=== PATIENT | female | born 1960 | race Caucasian/White ===

== ENCOUNTER 2018-03-21 14:25 | Inpatient (IN) | payer OTHER ==
[~2018-03-21] VITALS: Ht 165.1 cm; Wt 87.1 kg
[2018-03-21] MEDS ORDERED: ONDANSETRON 4 MG/2 ML (SDV) Z0FRAN IVP ONE (15:45)
[2018-03-21] MEDS ORDERED: NS IV 1000 ML 1,000 ML IV SCH (15:45)
[2018-03-21] MEDS ORDERED: fentaNYL INJECTION 100 MCG/2 ML AMP IVP ONE ×2 (15:45→18:45)
[2018-03-21 15:53] LABS: BASOPHILS % (AUTO) 0 % (0-10); EOSINOPHILS % (AUTO) 0 % (0-10); HEMATOCRIT 42 % (35-52); HEMOGLOBIN 14.2 G/DL (11.5-16.0); LYMPHOCYTES % (AUTO) 6 % (12-44); MEAN CORPUSCULAR HEMOGLOBIN 30 PG (25-34); MEAN CORPUSCULAR HGB CONC 34 G/DL (32-36); MEAN CORPUSCULAR VOLUME 89 FL (80-99); MEAN PLATELET VOLUME 9.8 FL (7.4-10.4); MONOCYTES # (AUTO) 1.3 X 10^3 (0.0-1.0); MONOCYTES % (AUTO) 8 % (0-12); NEUTROPHILS % (AUTO) 85 % (42-75); PLATELET COUNT 323 10^3/uL (130-400); RED BLOOD COUNT 4.72 10^6/uL (4.35-5.85); RED CELL DISTRIBUTION WIDTH 13.3 % (10.0-14.5); WHITE BLOOD COUNT 15.3 10^3/uL (4.3-11.0)
[2018-03-21 16:06] LABS: ALANINE AMINOTRANSFERASE 26 U/L (0-55); ALBUMIN 4.6 GM/DL (3.2-4.5); ALKALINE PHOSPHATASE 126 U/L (40-136); AMYLASE 19 U/L (25-125); BILIRUBIN,TOTAL 0.8 MG/DL (0.1-1.0); BUN/CREATININE RATIO 14; CALCIUM 10.3 MG/DL (8.5-10.1); CARBON DIOXIDE 27 MMOL/L (21-32); CHLORIDE 102 MMOL/L (98-107); CREATININE SERUM 0.83 MG/DL (0.60-1.30); GFR ESTIMATED > 60; GLUCOSE 131 MG/DL (70-105); LIPASE 19 U/L (8-78); POTASSIUM 3.1 MMOL/L (3.6-5.0); SODIUM 138 MMOL/L (135-145); TOTAL PROTEIN 8.4 GM/DL (6.4-8.2)
[2018-03-21] MEDS ORDERED: NS 250 ML (IVPB) BAG IV ONE (16:15)
[2018-03-21] MEDS ORDERED: IOHEXOL 350 MG/ML 100 ML (OMNIPAQUE 350) VIAL IV ONE (16:15)
[2018-03-21 16:23] LABS: BAND NEUTROPHILS 8 %; BASOPHILS % (MANUAL) 0 %; EOSINOPHILS % (MANUAL) 0 %; LYMPHOCYTES % (MANUAL) 7 %; METAMYELOCYTES % 1 %; MONOCYTES % (MANUAL) 9 %; NEUTROPHILS % (MANUAL) 75 %; RBC MORPH NORMAL
--- NOTE | 2018-03-21 17:11 | ED Abdominal Pain ---
General Chief Complaint: Abdominal/GI Problems Stated Complaint: N/V;UPPER ABD PAIN Nursing Triage Note: pt presents to ed with complaints of upper medial abdominal pain intermittently since but has been constant all day. pt also reports n/v. Sepsis Screen: No Definite Risk Source of Information: Patient Exam Limitations: No Limitations History of Present Illness Date Seen by Provider: Mar 21, 2018 Time Seen by Provider: 15:40 Initial Comments Patient is a 57-year-old female who presents to the emergency room with complaint of nausea, vomiting, upper abdominal/epigastric pain for the past 5 days. She denies any fevers, she reports she has not been able to keep anything down due to severe nausea and vomiting. Timing/Duration: 4-5 Days Severity/Quality: Cramping Location: Epigastric, Periumbilical Radiation: No Radiation Associated Symptoms: Nausea/Vomiting Allergies and Home Medications Allergies Coded Allergies: avocado (Verified Allergy, Unknown, 03/21/18) hepatitis B virus vaccine (Verified Allergy, Unknown, 03/21/18) Home Medications No Active Prescriptions or Reported Meds Patient Home Medication List Home Medication List Reviewed: Yes Review of Systems Review of Systems Constitutional: see HPI; No chills, No fever Gastrointestinal: See HPI, Abdominal Pain (right upper quadrant abdominal pain) , Nausea, Vomiting All Other Systems Reviewed Negative Unless Noted: Yes Past Iqrmfvo-Mtefso-Brjfpd Hx Past Med/Social Hx: Reviewed Nursing Past Med/Soc Hx Patient Social History Alcohol Use: Denies Use Recreational Drug Use: No Smoking Status: Never a Smoker Recent Foreign Travel: No Contact w/Someone Who Travel: No Recent Infectious Disease Expo: No Physical Abuse: No Sexual Abuse: No Mistreated: No Fear: No Past Medical History Surgeries: Yes Tonsillectomy, Tubal Ligation Respiratory: No Cardiac: No Neurological: No Genitourinary: No Gastrointestinal: No Musculoskeletal: No Endocrine: No HEENT: No Cancer: No Psychosocial: No Integumentary: No Blood Disorders: Yes (anemia) Family Medical History Reviewed Nursing Family Hx Physical Exam Vital Signs Vital Signs - First Documented 03/21/18 15:40 Temp 99.6 Pulse 86 Resp 12 B/P (MAP) 145/89 (107) Pulse Ox 98 Capillary Refill : Less Than 3 Seconds Height/Weight/BMI Height: 5'5.00" Weight: 190lbs. oz. 86.158616cz; BMI Method:Stated General Appearance: WD/WN, no apparent distress Respiratory: chest non-tender, lungs clear, normal breath sounds, no respiratory distress, no accessory muscle use Cardiovascular: normal peripheral pulses, regular rate, rhythm, no edema, no gallop, no JVD, no murmur Gastrointestinal: normal bowel sounds, soft, no organomegaly, no pulsatile mass , guarding (guarding to the right upper quadrant), tenderness (right upper quadrant and right lower quadrant abdominal tenderness) Neurologic/Psychiatric: alert, normal mood/affect, oriented x 3 Skin: normal color, warm/dry Progress/Results/Core Measures Results/Orders Lab Results Laboratory Tests Test 03/21/18 15:36 03/21/18 17:40 Range/Units White Blood Count 15.3 H 4.3-11.0 10^3/uL Red Blood Count 4.72 4.35-5.85 10^6/uL Hemoglobin 14.2 11.5-16.0 G/DL Hematocrit 42 35-52 % Mean Corpuscular Volume 89 80-99 FL Mean Corpuscular Hemoglobin 30 25-34 PG Mean Corpuscular Hemoglobin Concent 34 32-36 G/DL Red Cell Distribution Width 13.3 10.0-14.5 % Platelet Count 323 130-400 10^3/uL Mean Platelet Volume 9.8 7.4-10.4 FL Neutrophils (%) (Auto) 85 H 42-75 % Lymphocytes (%) (Auto) 6 L 12-44 % Monocytes (%) (Auto) 8 0-12 % Eosinophils (%) (Auto) 0 0-10 % Basophils (%) (Auto) 0 0-10 % Neutrophils # (Auto) 13.0 H 1.8-7.8 X 10^3 Lymphocytes # (Auto) 1.0 1.0-4.0 X 10^3 Monocytes # (Auto) 1.3 H 0.0-1.0 X 10^3 Eosinophils # (Auto) 0.0 0.0-0.3 10^3/uL Basophils # (Auto) 0.0 0.0-0.1 10^3/uL Neutrophils % (Manual) 75 % Lymphocytes % (Manual) 7 % Monocytes % (Manual) 9 % Eosinophils % (Manual) 0 % Basophils % (Manual) 0 % Metamyelocytes % 1 % Band Neutrophils 8 % Blood Morphology Comment NORMAL Sodium Level 138 135-145 MMOL/L Potassium Level 3.1 L 3.6-5.0 MMOL/L Chloride Level 102 98-107 MMOL/L Carbon Dioxide Level 27 21-32 MMOL/L Anion Gap 9 5-14 MMOL/L Blood Urea Nitrogen 12 7-18 MG/DL Creatinine 0.83 0.60-1.30 MG/DL Estimat Glomerular Filtration Rate > 60 BUN/Creatinine Ratio 14 Glucose Level 131 H 70-105 MG/DL Calcium Level 10.3 H 8.5-10.1 MG/DL Corrected Calcium 8.5-10.1 MG/DL Total Bilirubin 0.8 0.1-1.0 MG/DL Aspartate Amino Transf (AST/SGOT) 21 5-34 U/L Alanine Aminotransferase (ALT/SGPT) 26 0-55 U/L Alkaline Phosphatase 126 40-136 U/L Total Protein 8.4 H 6.4-8.2 GM/DL Albumin 4.6 H 3.2-4.5 GM/DL Amylase Level 19 L 25-125 U/L Lipase 19 8-78 U/L Urine Color YELLOW Urine Clarity CLEAR Urine pH 7 5-9 Urine Specific Gay 1.010 L 1.016-1.022 Urine Protein 2+ H NEGATIVE Urine Glucose (UA) NEGATIVE NEGATIVE Urine Ketones 1+ H NEGATIVE Urine Nitrite NEGATIVE NEGATIVE Urine Bilirubin NEGATIVE NEGATIVE Urine Urobilinogen NORMAL NORMAL MG/DL Urine Leukocyte Esterase 3+ H NEGATIVE Urine RBC (Auto) 2+ H NEGATIVE Urine RBC 2-5 H /HPF Urine WBC 10-25 H /HPF Urine Squamous Epithelial Cells 2-5 /HPF Urine Crystals PRESENT H /LPF Urine Amorphous Sediment FEW FORREST URATES H /LPF Urine Bacteria FEW H /HPF Urine Casts NONE /LPF Urine Mucus SMALL H /LPF Urine Culture Indicated YES My Orders Orders - LIANET CRANE Comprehensive Metabolic Panel (03/21/18 15:45) Lipase (03/21/18 15:45) Amylase (03/21/18 15:45) Ua Culture If Indicated (03/21/18 15:45) Saline Lock/Iv-Start (03/21/18 15:45) Cbc With Automated Diff (03/21/18 15:45) Ct Abdomen/Pelvis W (03/21/18 15:45) Ns Iv 1000 Ml (Sodium Chloride 0.9%) (03/21/18 15:45) Ondansetron Injection (Zofran Injectio (03/21/18 15:45) Fentanyl Injection (Sublimaze Injection (03/21/18 15:45) Manual Differential (03/21/18 15:36) Iohexol Injection (Omnipaque 350 Mg/Ml 1 (03/21/18 16:15) Ns (Ivpb) (Sodium Chloride 0.9%) (03/21/18 16:15) Urine Culture (03/21/18 17:40) Medications Given in ED Current Medications Medications Dose Ordered Sig/Abdelrahman Route Start Time Stop Time Status Last Admin Dose Admin Fentanyl Citrate 50 mcg ONCE ONCE IVP 03/21/18 15:45 03/21/18 15:48 DC 03/21/18 16:41 50 MCG Iohexol 100 ml ONCE ONCE IV 03/21/18 16:15 03/21/18 16:16 DC 03/21/18 17:20 100 ML Ondansetron HCl 8 mg ONCE ONCE IVP 03/21/18 15:45 03/21/18 15:48 DC 03/21/18 16:40 8 MG Sodium Chloride 250 ml ONCE ONCE IV 03/21/18 16:15 03/21/18 16:16 DC 03/21/18 17:21 80 ML Vital Signs/I&O 03/21/18 15:40 Temp 99.6 Pulse 86 Resp 12 B/P (MAP) 145/89 (107) Pulse Ox 98 Blood Pressure Mean: 107 Progress Progress Note : Time: 18:29 Progress Note Radiologist reports acute cholecystitis and dilated common bile that on CT scan at this time. I consult with Dr. Lee shortly after and he recommends IV antibiotics, ultrasound of gallbladder, plans for cholecystectomy in the morning. I informed patient of CT findings and plans for admission to Dr. Lee for gallbladder removal she is in agreement with plan of care, and additional fentanyl dose was given at this time for increasing pain. Diagnostic Imaging Diagonstic Imaging: CT Plain Films/CT/US/NM/MRI: abdomen, pelvis Comments NAME: KATJA BLACKBURN [facility] REC#: [id number] PT STATUS: ADM IN : 1960 PHYSICIAN: LIANET CRANE ADMIT DATE: 03/21/18 Signed Date of Exam: 03/21/18 CT ABDOMEN/PELVIS W PROCEDURE: CT abdomen and pelvis with contrast. TECHNIQUE: Multiple contiguous axial images were obtained through the abdomen and pelvis after administration of intravenous contrast. INDICATION: Upper abdominal pain, nausea, and vomiting. COMPARISON: None available. FINDINGS: The visualized lung bases are clear. The gallbladder is mildly dilated. This is associated with gallbladder wall thickening and small amount of pericholecystic fluid. Hyperemia within the adjacent liver is also identified. The common bile duct is dilated measuring up to 1.2 cm. This is associated with minimal intrahepatic biliary dilatation. No definite obstructing radiopaque stone within the common bile duct. The liver is otherwise unremarkable. The spleen is unremarkable. The adrenal glands are unremarkable. The pancreas is unremarkable. Bilateral parapelvic cysts. 0.5 cm nonobstructing calculus within the inferior pole of the left kidney. Otherwise, the kidneys and bilateral ureters are unremarkable. No aneurysmal dilatation of the abdominal aorta. The urinary bladder is unremarkable. The uterus and adnexal structures are unremarkable. Mild colonic diverticulosis without CT evidence of diverticulitis. No evidence of acute appendicitis. No bowel obstruction or pneumatosis. No significant adenopathy or free air. Scattered osseous degenerative changes without acute osseous abnormality. IMPRESSION: Findings concerning for acute cholecystitis. This is associated with dilatation of the common bile duct. Therefore, this could relate to an obstructing stone versus stricture versus obstructing mass lesion, though none are definitely identified on this examination. This can be further evaluated with ERCP. Bilateral parapelvic cysts associated with the kidneys. Nonobstructing left renal calculus. Additional findings as above. Report given to Dr. Rodriguez at 6:30 p.m. 03/21/2018/cb Dictated by: Dictated on workstation # [id number] Dict: 03/21/18 1734 Trans: 03/21/182042 Interpreted by: CHALO LIMA MD Electronically signed by: CHALO LIMA MD 03/21/182042 Reviewed: Reviewed by Il Departure Communication (Admissions) Time/Spoke to Admitting Phy: 18:30 LEE Impression Primary Impression: Acute cholecystitis Additional Impression: Cholecystectomy planned Disposition: ADMITTED INPATIENT Condition: Stable/Unchanged Admissions Decision to Admit Reason: Admit from ER (General) Decision to Admit/Date: Mar 21, 2018 Time/Decision to Admit Time: 18:42 Departure-Patient Inst. Scripts No Active Prescriptions or Reported Meds LIANET CRANE Mar 21, 2018 17:11
[2018-03-21 17:49] LABS: BILIRUBIN,URINE NEGATIVE (NEGATIVE); CLARITY,URINE CLEAR; COLOR,URINE YELLOW; GLUCOSE, URINE (UA) NEGATIVE (NEGATIVE); KETONES,URINE 1+ (NEGATIVE); LEUKOCYTE ESTERASE ,URINE 3+ (NEGATIVE); NITRITE,URINE NEGATIVE (NEGATIVE); PH,URINE 7 (5-9); PROTEIN,URINE 2+ (NEGATIVE); UROBILINOGEN,URINE NORMAL (NORMAL)
[2018-03-21 17:56] LABS: AMORPHOUS SEDIMENT,UR FEW AMOR URATES /LPF; BACTERIA,URINE FEW /HPF
--- NOTE | 2018-03-21 18:31 | Diagnostic Imaging Report ---
PROCEDURE: CT abdomen and pelvis with contrast. TECHNIQUE: Multiple contiguous axial images were obtained through the abdomen and pelvis after administration of intravenous contrast. INDICATION: Upper abdominal pain, nausea, and vomiting. COMPARISON: None available. FINDINGS: The visualized lung bases are clear. The gallbladder is mildly dilated. This is associated with gallbladder wall thickening and small amount of pericholecystic fluid. Hyperemia within the adjacent liver is also identified. The common bile duct is dilated measuring up to 1.2 cm. This is associated with minimal intrahepatic biliary dilatation. No definite obstructing radiopaque stone within the common bile duct. The liver is otherwise unremarkable. The spleen is unremarkable. The adrenal glands are unremarkable. The pancreas is unremarkable. Bilateral parapelvic cysts. 0.5 cm nonobstructing calculus within the inferior pole of the left kidney. Otherwise, the kidneys and bilateral ureters are unremarkable. No aneurysmal dilatation of the abdominal aorta. The urinary bladder is unremarkable. The uterus and adnexal structures are unremarkable. Mild colonic diverticulosis without CT evidence of diverticulitis. No evidence of acute appendicitis. No bowel obstruction or pneumatosis. No significant adenopathy or free air. Scattered osseous degenerative changes without acute osseous abnormality. IMPRESSION: Findings concerning for acute cholecystitis. This is associated with dilatation of the common bile duct. Therefore, this could relate to an obstructing stone versus stricture versus obstructing mass lesion, though none are definitely identified on this examination. This can be further evaluated with ERCP. Bilateral parapelvic cysts associated with the kidneys. Nonobstructing left renal calculus. Additional findings as above. Report given to Dr. Rodriguez at 6:30 p.m. 03/21/2018/cb Dictated by: Dictated on workstation # [id number]
[2018-03-21] MEDS ORDERED: PIPERACILLIN/TAZO 4.5 GM/NS 100 ML IV NR ×2 (20:00)
[2018-03-21] MEDS ORDERED: CATHETER FLUSH 10 ML SYR IV PRN (20:15)
[2018-03-21] MEDS: NS IV 1000 ML 1,000 ML IV SCH (21:32)
[2018-03-21] MEDS: ONDANSETRON 4 MG/2 ML (SDV) Z0FRAN IV PRN (21:32)
[2018-03-22 00:30] VITALS: BP 108/56
[2018-03-22] MEDS: PIPERACILLIN/TAZO 4.5 GM/NS 100 ML IV SCH ×6 (02:49→23:07)
[2018-03-22] MEDS: NS IV 1000 ML 1,000 ML IV SCH ×4 (03:00→23:07)
[2018-03-22 04:42] VITALS: BP 108/57
[2018-03-22 05:59] LABS: BASOPHILS % (AUTO) 0 % (0-10); EOSINOPHILS # (AUTO) 0.1 10^3/uL (0.0-0.3); EOSINOPHILS % (AUTO) 1 % (0-10); HEMATOCRIT 36 % (35-52); HEMOGLOBIN 11.9 G/DL (11.5-16.0); LYMPHOCYTES # (AUTO) 1.4 X 10^3 (1.0-4.0); LYMPHOCYTES % (AUTO) 20 % (12-44); MEAN CORPUSCULAR HEMOGLOBIN 30 PG (25-34); MEAN CORPUSCULAR HGB CONC 33 G/DL (32-36); MEAN CORPUSCULAR VOLUME 91 FL (80-99); MEAN PLATELET VOLUME 9.9 FL (7.4-10.4); MONOCYTES % (AUTO) 14 % (0-12); NEUTROPHILS # (AUTO) 4.5 X 10^3 (1.8-7.8); NEUTROPHILS % (AUTO) 65 % (42-75); PLATELET COUNT 265 10^3/uL (130-400); RED BLOOD COUNT 3.94 10^6/uL (4.35-5.85); RED CELL DISTRIBUTION WIDTH 13.4 % (10.0-14.5); WHITE BLOOD COUNT 6.9 10^3/uL (4.3-11.0)
[2018-03-22 06:20] LABS: ALANINE AMINOTRANSFERASE 271 U/L (0-55); ALBUMIN 3.5 GM/DL (3.2-4.5); ALKALINE PHOSPHATASE 172 U/L (40-136); BILIRUBIN,TOTAL 3.8 MG/DL (0.1-1.0); BUN/CREATININE RATIO 13; CALCIUM 9.2 MG/DL (8.5-10.1); CARBON DIOXIDE 22 MMOL/L (21-32); CHLORIDE 108 MMOL/L (98-107); CREATININE SERUM 0.75 MG/DL (0.60-1.30); GFR ESTIMATED > 60; GLUCOSE 105 MG/DL (70-105); SODIUM 142 MMOL/L (135-145); TOTAL PROTEIN 6.2 GM/DL (6.4-8.2)
--- NOTE | 2018-03-22 07:59 | History & Physicial ---
History of Present Illness History of Present Illness Reason for visit/HPI increasing epigastric and right upper quadrant pain of 3 days' duration. Evaluation is confirmed sludge in gallstones with acute cholecystitis. Liver function is elevated with dilatation of the common bile duct, raising the concern for choledocholithiasis. Date of Admission Mar 21, 2018 at 18:30 Date Seen by Provider: Mar 21, 2018 Time Seen by Provider: 18:20 I consulted on this patient on 03/22/18 07:56 Attending Physician Christina Lee MD Admitting Physician Consult Allergies and Home Medications Allergies Coded Allergies: avocado (Verified Allergy, Unknown, 03/21/18) hepatitis B virus vaccine (Verified Allergy, Unknown, 03/21/18) Home Medications No Active Prescriptions or Reported Meds Patient Home Medication List Home Medication List Reviewed: Yes Past Luvdzmt-Vqjlma-Ifkksq Hx Patient Social History Marrital Status: Employed/Student: unemployed Alcohol Use: Denies Use Recreational Drug Use: No Smoking Status: Never a Smoker Physical Abuse Screen: No Sexual Abuse: No Recent Foreign Travel: No Contact w/other who traveled: No Recent Hopitalizations: No Recent Infectious Disease Expo: No Seasonal Allergies Seasonal Allergies: Yes (corn, grass, dust) Surgeries Yes Tonsillectomy, Tubal Ligation Respiratory No Cardiovascular No Neurological No Reproductive System Sexually Transmitted Disease: No HIV/AIDS: No Genitourinary No Gastrointestinal No Musculoskeletal No Endocrine History of Endocrine Disorders: No HEENT History of HEENT Disorders: Yes HEENT Disorders: Tinnitis Loss of Vision: Denies Hearing Impairment: Denies Cancer No Psychosocial History of Psychiatric Problem: No Integumentary History of Skin or Integumenta: No Blood Transfusions History of Blood Disorders: No Adverse Reaction to a Blood Tr: No Family Medical History Family Hx: Alzheimer's disease Dementia 19 MOTHER Thyroid disease G8 BROTHER Review of Systems Constitutional: fever, malaise EENTM: no symptoms reported Respiratory: no symptoms reported Cardiovascular: no symptoms reported Gastrointestinal: see HPI Genitourinary: no symptoms reported Musculoskeletal: no symptoms reported Skin: no symptoms reported Psychiatric/Neurological: No Symptoms Reported Physical Exam Vital Signs Vital Signs - First Documented 03/21/18 03/21/18 15:40 19:45 Temp 99.6 Pulse 86 Resp 12 B/P (MAP) 145/89 (107) Pulse Ox 98 O2 Delivery Room Air Capillary Refill : Less Than 3 Seconds Height, Weight, BMI Height: 5'5.00" Weight: 192lbs. 0.8oz. 87.021561bs; 32.0 BMI Method:Stated General Appearance: Mild Distress Neck: Normal Inspection Respiratory: Lungs Clear Cardiovascular: Regular Rate, Rhythm Gastrointestinal: Soft, Tenderness Extremity: Normal Inspection Neurologic/Psychiatric: Alert, Oriented x3 Skin: Warm/Dry Comments tender over the right upper quadrant consistent with positive Riley sign. Assessment/Plan Assessment and Plan lady with complicated gallstone disease. Acute cholecystitis. Possible choledocholithiasis. In view of acute cholecystitis, it is reasonable to address the gallbladder first using minimally invasive technique and robotic assistance. Cholangiogram would be a attempted and the common bile duct assessed. Regardless, it is likely that she will require postoperative ERCP. Details of surgery, expected recovery, complications of wound infection, bile leak etc. reviewed thoroughly. Seems to be in agreement to proceed. Admission Diagnosis Admission Status: Observation Clinical Quality Measures DVT/VTE Risk/Contraindication: Risk Factor Score Per Nursin RFS Level Per Nursing on Admit: 2=Moderate CHRISTINA LEE MD Mar 22, 2018 07:59
--- NOTE | 2018-03-22 07:59 | Progress Note-Pre Operative ---
Pre-Operative Progress Note H&P Reviewed The H&P was reviewed, patient examined and no changes noted. Date Seen by Provider: Mar 21, 2018 Time Seen by Provider: 17:50 Date H&P Reviewed: Mar 22, 2018 Time H&P Reviewed: 07:59 Pre-Operative Diagnosis: acute cholecystitis CHRISTINA LEE MD Mar 22, 2018 07:59
[2018-03-22 08:00] VITALS: BP 131/63
--- NOTE | 2018-03-22 08:10 | Diagnostic Imaging Report ---
INDICATION: Abdominal pain TECHNIQUE: Multiple grayscale sonographic images were obtained of the right upper quadrant of the abdomen. CORRELATION STUDY: None FINDINGS: LIVER: There is uniform echotexture within the visualized portions of the liver. Liver size 14.5 cm. GALLBLADDER: Abnormal appearance about the gallbladder with presence of abnormal gallbladder wall thickening at 4-5 mm. Pericholecystic fluid is present. Appears be a combination of shadowing stones and sludge. COMMON BILE DUCT: Obscured and not able to be visualized. PANCREAS: Largely obscured. RIGHT KIDNEY: Measures 11.8 cm. No hydronephrosis. AORTA/IVC: Not well visualized. OTHER: None. IMPRESSION: 1. Cholelithiasis and biliary sludge along with pericholecystic fluid and gallbladder wall thickening raises concern for acute cholecystitis. Biliary tree is obscured and cannot be visualized. Called to Kaitlin at 8:09 a.m. by roosevelt. Dictated by: Dictated on workstation # [id number]
[2018-03-22] MEDS: POTASSIUM CL 10MEQ/50ML IVPB 50 ML IV SCH ×4 (08:29→21:04)
[2018-03-22] MEDS ORDERED: fentaNYL INJECTION 100 MCG/2 ML AMP ONE (10:27)
[2018-03-22] MEDS ORDERED: ROCURONIUM 10 MG/ML 5 ML SYRINGE IV ONE (10:27)
[2018-03-22] MEDS ORDERED: DEXAMETHASONE 10 MG/ML (DECADRON) 1 ML VIAL ONE (10:27)
[2018-03-22] MEDS ORDERED: GLYCOPYRROLATE 0.2 MG/ML (ROBINUL) 2 ML VIAL ONE ×2 (10:27→12:52)
[2018-03-22] MEDS ORDERED: LIDOCAINE PF 2% 2 ML (XYLOCAINE) VIAL ONE (10:27)
[2018-03-22] MEDS ORDERED: NEOSTIGMINE 1 MG/ML 5 ML SYRINGE ONE ×2 (10:27→12:52)
[2018-03-22] MEDS ORDERED: ONDANSETRON 4 MG/2 ML (SDV) Z0FRAN ONE (10:27)
[2018-03-22] MEDS ORDERED: proPOfol 200 MG/20 ML (DIPRIVAN) VIAL IV ONE (10:27)
[2018-03-22] MEDS ORDERED: SEVOFLURANE (ULTANE) 15 ML INHAL SOLN ONE ×3 (10:27→12:58)
[2018-03-22] MEDS ORDERED: MIDAZOLAM 2 MG/2 ML (VERSED) VIAL ONE (10:28)
[2018-03-22] MEDS ORDERED: BUP/EPI 0.5% 1:200,000 (SENSORCAINE) 30 ML VIAL ONE (10:44)
[2018-03-22] MEDS ORDERED: SUCCINYLCHOLINE INJ 100 MG/5 ML SYR ONE (10:47)
[2018-03-22] MEDS ORDERED: ceFAZolin 1,000 MG/10 ML (ANCEF) VIAL ONE (10:59)
[2018-03-22] MEDS ORDERED: ceFAZolin 2 GM IV Premixed 50 ML IV ONE (11:00)
[2018-03-22] MEDS ORDERED: metroNIDAZOLE 500MG/100ML IVPB 100 ML ONE (11:04)
[2018-03-22] MEDS: ceFAZolin 2 GM IV Premixed 50 ML IV ONE (11:12)
[2018-03-22] MEDS: LACTATED RINGERS 1,000 ML IV PRN ×2 (11:12→12:23)
[2018-03-22] MEDS ORDERED: HYDROmorphone 2 MG/ML VIAL (DILAUDID) IV ONE (11:45)
[2018-03-22] MEDS ORDERED: ONDANSETRON 4 MG/2 ML (SDV) Z0FRAN IVP PRN (11:45)
[2018-03-22] MEDS ORDERED: morphine INJ 10 MG/ML 1ML (SYR OR VIAL) IVP ONE (11:45)
[2018-03-22] MEDS ORDERED: metroNIDAZOLE 500MG/100ML IVPB 100 ML IV ONE (12:30)
--- NOTE | 2018-03-22 13:05 | Operative Report ---
Operative Report Date of Procedure/Surgery Mar 22, 2018 Surgeon (s) CHRISTINA LEE MD Flaker Tender (s): N/A Post-Operative Diagnosis Acute cholecystitis Cholelithiasis Choledocholithiasis Procedure Performed Robotic-assisted cholecystectomy Intraoperative cholangiogram(multiple common duct stones) Description of Procedure Anesthesia Type: General Estimated blood loss (mL): 150 Specimen(s) collected/removed Gallbladder Description of the Procedure Indication for the procedure: This lady presented with complicated gallstone disease, manifesting as acute cholecystitis and elevated liver enzymes, with a dilated common bile duct. Even though choledocholithiasis was elected, due to acute cholecystitis, it was felt reasonable to address the gallbladder first, preserving therapeutic ERCP during the immediate postoperative period. Informed consent was obtained after reviewing the details of the operation and complications of wound infection and bile leak. Description of procedure: She was placed supine on the operative table and general anesthesia induced. 2 g of Ancef and 500 mg of Flagyl were administered intravenously as prophylaxis against wound infection. Sequential compression devices were placed around her legs to minimize the risk of venous thrombosis. Abdomen was prepared and draped in the usual sterile manner. A supraumbilical incision was made and pneumoperitoneum established using a Veress needle. Intra-abdominal pressure was maintained at 15 mmHg, using carbon dioxide insufflation. A 12 mm trocar was placed and anatomy visualized using the high definition, 3-dimensional laparoscope associated with da Vahid system. Omentum was wrapped around the subhepatic region. Under direct view, I placed an 8 mm trocar over each side of the abdomen, followed by a 5 mm trocar over the left upper quadrant. The robotic system was then docked in place after the patient was turned in the reverse Trendelenburg position. Omentum was displaced out of the way, displaying acutely inflamed, thick-walled gallbladder. The fundus was retracted cephalad and omentum gently from the neck of the gallbladder and blunt dissection. Thickened tissue around Calot's triangle was incised using the hook cautery, delineating the cystic duct and artery. Cholangiogram was obtained using taut catheter. It revealed a dilated common bile duct with multiple stones within it. The contrast however , flow slowly into the duodenum. The catheter was then removed and the cystic duct controlled using a total of 3 locking clips. Cystic artery was divided between similar clips as well. Cholecystomy was then completed using the hook cautery. Bleeding from the gallbladder fossa was controlled using the hook cautery and the subhepatic space irrigated with saline. A 15 Nepali Yemi-Price drain was left in this bulbar fossa, being brought to the 8 mm incision over the right side of the abdomen. It was secured using a 2- 0 silk suture. The gallbladder was then placed in an Endo catch bag and removed via the supraumbilical incision. The fascia over this incision had to be extended laterally to allow retrieval of the large gallbladder. It was then closed using #1 Vicryl, in an interrupted fashion. Skin incisions were closed using 4-0 Vicryl, in a subcuticular fashion. 0.5 percent Marcaine with epinephrine was infiltrated along the incisions, both preemptively and at the conclusion of the operation. She tolerated the procedure well, was extubated in the operating room and taken to the recovery room in a stable condition. Findings of the Procedure see op report Allergies and Home Medications Allergies Coded Allergies: avocado (Verified Allergy, Unknown, 03/21/18) hepatitis B virus vaccine (Verified Allergy, Unknown, 03/21/18) Home Medications No Active Prescriptions or Reported Meds Patient Home Medication List Home Medication List Reviewed: Yes CHRISTINA LEE MD Mar 22, 2018 13:05
[2018-03-22] MEDS ORDERED: ACHD5005 PO (13:09)
[2018-03-22] MEDS ORDERED: HYDROmorphone 2 MG/ML VIAL (DILAUDID) ONE (13:09)
--- NOTE | 2018-03-22 13:10 | Discharge Inst-Simple/Standard ---
Discharge Inst-Standard Discharge Medications New, Converted or Re-Newed RX: RX on Chart Patient Instructions/Follow Up Plan of Care/Instructions/FU: Band-Aids of in a.m. Clear liquid breakfast before 7 a.m. tomorrow and to stay nothing by mouth thereafter. ERCP procedure scheduled for tomorrow evening at [facility]. Follow-up with me next Wednesday, the Activity as Tolerated: Yes Discharge Diet: No Restrictions Planned Outpatient Orders/Ref. Pneu Vac Indicated: Yes CHRISTINA LEE MD Mar 22, 2018 13:10
--- NOTE | 2018-03-22 14:12 | Diagnostic Imaging Report ---
Indication: Cholelithiasis. Fluoroscopy was provided in the OR during intraoperative cholangiogram. 29 seconds of fluoroscopy was utilized. Images demonstrate injection of contrast into the cystic duct remnant. There are several filling defects identified within the common bile and common hepatic ducts suggestive of retained stones. There is intrahepatic and extrahepatic biliary duct dilatation. Impression: Fluoroscopy during intraoperative cholangiogram. There is intrahepatic and extrahepatic biliary ductal dilatation. Multiple filling defects are present suggestive of choledocholithiasis. Results were discussed with Dr. Munson prior to this dictation. Dictated by: Dictated on workstation # [id number]
[2018-03-22 14:30] VITALS: BP 114/59
[2018-03-22] MEDS: fentaNYL INJECTION 100 MCG/2 ML AMP IV PRN ×3 (14:43→23:51)
[2018-03-22] MEDS: ONDANSETRON 4 MG/2 ML (SDV) Z0FRAN IV PRN ×2 (14:43→19:49)
[2018-03-22 15:45] VITALS: BP 113/62
[2018-03-22 20:08] VITALS: BP 142/70
[2018-03-23] VITALS: BP 128/61
[2018-03-23] MEDS: fentaNYL INJECTION 100 MCG/2 ML AMP IV PRN ×3 (04:01→13:03)
[2018-03-23] MEDS: NS IV 1000 ML 1,000 ML IV SCH (04:38)
[2018-03-23 05:00] VITALS: BP 139/63
[2018-03-23] MEDS ORDERED: ACETAMINOPHEN 500 MG TAB (TYLENOL) PO ONE (05:30)
[2018-03-23] MEDS: PIPERACILLIN/TAZO 4.5 GM/NS 100 ML IV SCH ×4 (06:13→13:05)
[2018-03-23 08:00] VITALS: BP 140/68
[2018-03-23 10:00] LABS: BASOPHILS % (AUTO) 0 % (0-10); EOSINOPHILS % (AUTO) 0 % (0-10); HEMATOCRIT 36 % (35-52); HEMOGLOBIN 11.6 G/DL (11.5-16.0); LYMPHOCYTES # (AUTO) 0.9 X 10^3 (1.0-4.0); LYMPHOCYTES % (AUTO) 6 % (12-44); MEAN CORPUSCULAR HEMOGLOBIN 30 PG (25-34); MEAN CORPUSCULAR HGB CONC 33 G/DL (32-36); MEAN CORPUSCULAR VOLUME 92 FL (80-99); MEAN PLATELET VOLUME 9.7 FL (7.4-10.4); MONOCYTES # (AUTO) 1.3 X 10^3 (0.0-1.0); MONOCYTES % (AUTO) 9 % (0-12); NEUTROPHILS # (AUTO) 12.5 X 10^3 (1.8-7.8); NEUTROPHILS % (AUTO) 85 % (42-75); PLATELET COUNT 264 10^3/uL (130-400); RED BLOOD COUNT 3.87 10^6/uL (4.35-5.85); RED CELL DISTRIBUTION WIDTH 13.7 % (10.0-14.5); WHITE BLOOD COUNT 14.7 10^3/uL (4.3-11.0)
[2018-03-23 10:23] LABS: ALANINE AMINOTRANSFERASE 141 U/L (0-55); ALBUMIN 3.4 GM/DL (3.2-4.5); ALKALINE PHOSPHATASE 144 U/L (40-136); BILIRUBIN,TOTAL 1.3 MG/DL (0.1-1.0); BUN/CREATININE RATIO 14; CALCIUM 9.1 MG/DL (8.5-10.1); CARBON DIOXIDE 23 MMOL/L (21-32); CHLORIDE 108 MMOL/L (98-107); CREATININE SERUM 0.79 MG/DL (0.60-1.30); GFR ESTIMATED > 60; GLUCOSE 109 MG/DL (70-105); POTASSIUM 3.2 MMOL/L (3.6-5.0); SODIUM 139 MMOL/L (135-145); TOTAL PROTEIN 6.3 GM/DL (6.4-8.2)
[2018-03-23] MEDS: ONDANSETRON 4 MG/2 ML (SDV) Z0FRAN IV PRN (10:32)
[2018-03-23] MEDS ORDERED: ACETAMINOPHEN 500 MG TAB (TYLENOL) PO PRN (10:45)
--- NOTE | 2018-03-23 11:10 | Progress Note-Standard ---
Standard Progress Note Progress Notes/Assess & Plan Date Seen by Provider: Mar 23, 2018 Time Seen by Provider: 11:09 Progress/Assessment & Plan low-grade fever. Encouraged to use incentive spirometry. No bile in the drain. Incisions dry. Decreased breath sounds over the right lower base. For therapeutic ERCP this evening. Final Diagnosis acute cholecystitis due to gallstones. Choledocholithiasis CHRISTINA LEE MD Mar 23, 2018 11:10
[2018-03-23 12:00] VITALS: BP 147/70
[2018-03-23] MEDS ORDERED: MUPIROCIN 2% OINT 22 GM (BACTROBAN) TUBE NSEACH SCH ×2 (12:45→13:30)
[2018-03-23] MEDS ORDERED: METOCLOPRAMIDE INJ 10 MG/2 ML (REGLAN) IVP NR (13:15)
[2018-03-23] MEDS ORDERED: RELABEL FOR HOME USE MC SCH (13:30)
--- NOTE | 2018-03-23 13:58 | Anesthesia-General Post-Op ---
General Patient Condition Mental Status/LOC: Same as Preop Cardiovascular: Satisfactory Nausea/Vomiting: Absent Respiratory: Satisfactory Pain: Controlled Complications: Absent Post Op Complications Complications None Follow Up Care/Instructions Patient Instructions None needed. Anesthesia/Patient Condition Patient Condition Patient is doing well, no complaints, stable vital signs, no apparent adverse anesthesia problems. No complications reported per nursing. JOSE SIDDIQUI CRNA Mar 23, 2018 13:58
[2018-03-23] MEDS ORDERED: MUPI22OI2 NSEACH (14:09)
[2018-03-23 15:00] VITALS: BP 138/70
== END 2018-03-23 15:00 | disposition home or self-care (01) | DRG 419 ==
LOC: EDUNIT# 14:25 → ER 14:26 → 4TH 18:30
PROVIDERS: ADMIT Surgery; ATTEND Surgery
PROC: BF101ZZ Fluoroscopy of Bile Ducts using Low Osmolar Contrast (ICD-10-PCS; 2018-03-22)
PROC: 8E0W4CZ Robotic Assisted Procedure of Trunk Region, Percutaneous Endoscopic Approach (ICD-10-PCS; 2018-03-22)
PROC: 0FT44ZZ Resection of Gallbladder, Percutaneous Endoscopic Approach (ICD-10-PCS; principal; 2018-03-22 11:12)
DX: K80.62 Calculus of gallbladder and bile duct with acute cholecystitis without obstruction (principal); K21.9 Gastro-esophageal reflux disease without esophagitis; Z86.2 Personal history of diseases of the blood and blood-forming organs and certain disorders involving the immune mechanism
CPT/HCPCS: 36415; 74177; 76705; 80053; 81000; 82150; 83690; 85007; 85025; 85027; 87081; 87088; 88304; 94640; 94664; 96361; 96374; 96375; 96376